=== PATIENT | male | born 1960 | race Caucasian/White ===

== ENCOUNTER → 2017-10-07 | Outpatient (CLI) | payer MEDICARE ==
[2017-10-07 09:39] LABS: HEMATOCRIT 47.2 % (42.0-52.0); HEMOGLOBIN 16.4 g/dl (14.0-18.0); MEAN CELL VOLUME 90.4 fl (80.0-94.0); MEAN CORPUSCULAR HGB 31.4 pg (27.0-31.0); MEAN CORPUSCULAR HGB CONC 34.7 g/dl (33.0-37.0); MEAN PLATELET VOLUME 11.8 fl (9.6-12.3); RED BLOOD COUNT 5.22 10*6/uL (4.50-5.90); RED CELL DISTRI WIDTH 12.8 % (0-14.5); WHITE BLOOD COUNT 7.6 10*3/uL (4.8-10.8)
[2017-10-07 09:49] LABS: ALKALINE PHOSPHATASE 112 U/L (45-117); BUN 11 mg/dl (7-24); CHLORIDE 105 mmol/L (98-107); CHOLESTEROL 106 mg/dL (<200); CREATININE 0.86 mg/dL (0.70-1.30); HDL CHOLESTEROL 48 mg/dl (40-60); LDL CHOLESTEROL 44 mg/dL (9-159); POTASSIUM 4.1 mmol/L (3.5-5.1); SGOT/AST 27 IU/L (3-35); SGPT/ALT 46 U/L (12-78); SODIUM 141 mmol/L (136-145); TOTAL PROTEIN 7.3 gm/dL (6.4-8.2); TRIGLYCERIDES 71 mg/dl (<150); VLDL CHOLESTEROL 14 mg/dL (6-40)
== END | disposition home or self-care (01) ==
LOC: LAB 08:37
PROVIDERS: Family Medicine
DX: Z12.5 Encounter for screening for malignant neoplasm of prostate (principal); I10 Essential (primary) hypertension; E11.9 Type 2 diabetes mellitus without complications; E78.00 Pure hypercholesterolemia, unspecified

== ENCOUNTER 2020-04-28 16:06 | Inpatient (IN) | payer MEDICARE ==
[~2020-04-28] VITALS: Ht 177.8 cm; Wt 98.0 kg
[2020-04-28 16:08] VITALS: BP 135/70
[2020-04-28 16:35] LABS: BASO # 0.1 10*3/uL (0.0-0.1); BASO % 0.8 % (0.0-1.0); EOS # 0.1 10*3/uL (0.0-0.4); EOS % 1.3 % (1.0-4.0); HEMATOCRIT 46.8 % (42.0-52.0); LYMPH # 1.7 10*3/uL (1.3-4.4); LYMPH % 21.5 % (27.0-41.0); MEAN CELL VOLUME 91.2 fl (80.0-94.0); MEAN CORPUSCULAR HGB 31.2 pg (27.0-31.0); MEAN CORPUSCULAR HGB CONC 34.2 g/dl (33.0-37.0); MEAN PLATELET VOLUME 11.9 fl (9.6-12.3); MONO # 0.5 10*3/uL (0.1-1.0); MONO % 6.4 % (3.0-9.0); NEUT # 5.3 10*3/uL (2.3-7.9); NEUT % 69.2 % (47.0-73.0); PLATELET COUNT AUTOMATED 146 10*3/uL (130-400); RED BLOOD COUNT 5.13 10*6/uL (4.50-5.90); RED CELL DISTRI WIDTH 12.6 % (0-14.5); WHITE BLOOD COUNT 7.7 10*3/uL (4.8-10.8)
[2020-04-28 16:44] LABS: ACT PARTIAL THROMBO TIME 25.7 SECONDS (20.0-32.1)
[2020-04-28 16:51] LABS: ALBUMIN 3.9 gm/dl (3.1-4.5); ALKALINE PHOSPHATASE 136 U/L (45-117); BUN 22 mg/dl (7-24); CHLORIDE 103 mmol/L (98-107); CREATININE 1.09 mg/dL (0.70-1.30); POTASSIUM 4.1 mmol/L (3.5-5.1); SGOT/AST 10 IU/L (3-35); SGPT/ALT 32 U/L (12-78); SODIUM 134 mmol/L (136-145); TOTAL PROTEIN 7.4 gm/dL (6.4-8.2)
[2020-04-28 16:54] LABS: TROPONIN I < 0.015 ng/ml (<0.045)
[2020-04-28 17:38] VITALS: BP 139/75
[2020-04-28 18:29] VITALS: BP 119/62
--- NOTE | 2020-04-28 18:31 | NUR ---
CALLED TO [facility] EAST TO FIND OUT WHAT NURSE IS TAKING PATIENT AND WAS TOLD ALL NURSES ARE DOING ADMISSIONS AT THIS TIME. WARDCLERK STATES UNSURE OF WHAT NURSE IS TAKING PT AT THIS TIME. PT. QUIETLY RESTING IN BED WITH EYES CLOSED.
--- NOTE | 2020-04-28 18:50 | NUR ---
A 59, admitted to 5E, under the services of LOUIS Mayer MD with a diagnosis of CHEST PAIN . Chief complaint is CHEST PAIN . Patient arrived via stretcher from ER. Monitor applied. Initial assessment completed. Vital signs taken and recorded. LOUIS MAYER MD notified of admission to the unit. Orders received. See assessment for past medical history, medications and allergies. Patient and/or family oriented to unit. [facility] visitation policy reviewed. Clothing/patient valuable form completed. FRANNIE SANTIAGO
--- NOTE | 2020-04-28 19:16 | NUR ---
PT DENIES ANY WOUNDS
--- NOTE | 2020-04-28 19:56 | NUR ---
dr reza called for admission orders
--- NOTE | 2020-04-28 20:11 | NUR ---
DR HERRERA NOTIFIED OF CONSULT, PATIENT WILL HAVE CARDIOLITE LEXISCAN STRESS AT 7 AM
[2020-04-28 22:11] VITALS: BP 138/70
--- NOTE | 2020-04-29 02:00 | NUR ---
blood glucose check 195
[2020-04-29 06:58] LABS: CHOLESTEROL 141 mg/dL (<200); HDL CHOLESTEROL 44 mg/dl (40-60); LDL CHOLESTEROL 67 mg/dL (9-159); TRIGLYCERIDES 152 mg/dl (<150); VLDL CHOLESTEROL 30 mg/dL (6-40)
--- NOTE | 2020-04-29 07:25 | NUR ---
OFF FLOOR FOR STRESS TEST.
--- NOTE | 2020-04-29 07:45 | NUR ---
INFORMED CONSENT OBTAINED FOR LEXISCAN NUCLEAR STRESS TEST WITH DR. HERRERA. RESTING EKG RBBB WITH A RESTING HR OF 64 WITH BP 112/60. LUNGS CLEAR WITH SPO2 OF 97% ON ROOM AIR. PT COMPLETED A 1:00 LEXISCAN PROTOCOL RECEIVING LEXISCAN 0.4 MG IV OVER 10 SECONDS. HAD NO CHEST PAIN OR ANY EKG CHANGES. DID C/O "HEADACHE AND ODD FEELING" THAT SUBSIDED IN RECOVERY. HAD A PEAK HR OF 83 WITH BP OF 94/50. LAST RECOVERY HR OF 76 WITH BP OF 90/52. AWAITING SCANNING IN STABLE CONDITION.
[2020-04-29] MEDS ORDERED: GLIMEPIRIDE2 MG PO (08:55)
[2020-04-29] MEDS ORDERED: GLUCOPHAGE500 MG PO (08:55)
--- NOTE | 2020-04-29 11:52 | NUR ---
[employer] Teacher in to talk to patient. Patient states lives at HOME with 2 GRAND CHILDREN. There are 13 steps in the home. Physician: [facility] [place] [facility] NONE Patient's level of ADLs: INDEPENDENT Patient has working utilities: YES DME: NONE Follow-up physician's appointment after d/c: PREFERS TO MAKE OWN AFTER DISCHARGE Does patient want to access PORTAL?: NO Discharge plan PT LIVES AT HOME WITH 2 GRAND CHILDREN HE HAS CUSTODY OF. DENIES HE WILL HAVE ANY NEEDS ON DISCHARGE. PLAN IS TO RETURN HOME WHEN MEDICALLY STABLE. WILL CONTINUE TO FOLLOW. STATES HE WILL HAVE A RIDE HOME. MIKE MARCOS
--- NOTE | 2020-04-29 13:32 | NUR ---
[facility] Discharge instructions reviewed with patient/family. Patient receptive and verbalizes understanding. Follow-up care arranged. Written instructions given to patient/family. ADELAIDA FINNEY
== END 2020-04-29 13:44 | disposition home or self-care (01) | DRG 639 ==
LOC: ED 16:06 → EDHOLD 17:57 → 5E 17:57
PROVIDERS: Emergency Medicine; ADMIT Internal Medicine
PROC: 3E073KZ Introduction of Other Diagnostic Substance into Coronary Artery, Percutaneous Approach (ICD-10-PCS; principal; 2020-04-29)
PROC: 4A02XM4 Measurement of Cardiac Total Activity, External Approach (ICD-10-PCS; principal; 2020-04-29)
DX: E11.65 Type 2 diabetes mellitus with hyperglycemia (principal); I45.10 Unspecified right bundle-branch block; Z82.49 Family history of ischemic heart disease and other diseases of the circulatory system

== ENCOUNTER 2021-07-10 11:41 | Inpatient (IN) | payer MEDICARE ==
[~2021-07-10] VITALS: Ht 178 cm; Wt 88.0 kg
[~2021-07-10 11:41] MED LIST: CEPHALEXIN500 M1 PO; GLIMEPIRIDE2 MG PO; GLUCOPHAGE500 MG PO; SEPTDS PO
[2021-07-10 12:21] VITALS: BP 125/60
[2021-07-10 13:43] LABS: BASO # 0.1 10*3/uL (0.0-0.1); BASO % 0.5 % (0.0-1.0); EOS # 0.1 10*3/uL (0.0-0.4); EOS % 1.2 % (1.0-4.0); HEMATOCRIT 42.4 % (42.0-52.0); LYMPH # 1.3 10*3/uL (1.3-4.4); LYMPH % 13.6 % (27.0-41.0); MEAN CELL VOLUME 88.9 fl (80.0-94.0); MEAN CORPUSCULAR HGB 30.8 pg (27.0-31.0); MEAN CORPUSCULAR HGB CONC 34.7 g/dl (33.0-37.0); MEAN PLATELET VOLUME 11.4 fl (9.6-12.3); MONO # 0.6 10*3/uL (0.1-1.0); MONO % 6.2 % (3.0-9.0); NEUT # 7.1 10*3/uL (2.3-7.9); NEUT % 77.7 % (47.0-73.0); PLATELET COUNT AUTOMATED 148 10*3/uL (130-400); RED BLOOD COUNT 4.77 10*6/uL (4.50-5.90); RED CELL DISTRI WIDTH 12.5 % (0-14.5); WHITE BLOOD COUNT 9.2 10*3/uL (4.8-10.8)
[2021-07-10 14:04] LABS: ALBUMIN 3.4 gm/dl (3.1-4.5); ALKALINE PHOSPHATASE 110 U/L (45-117); BUN 18 mg/dl (7-24); CHLORIDE 105 mmol/L (98-107); CREATININE 0.96 mg/dL (0.70-1.30); POTASSIUM 4.2 mmol/L (3.5-5.1); SGOT/AST 10 IU/L (3-35); SGPT/ALT 25 U/L (12-78); SODIUM 136 mmol/L (136-145); TOTAL PROTEIN 7.3 gm/dL (6.4-8.2)
[2021-07-10 22:08] VITALS: BP 141/68
[2021-07-11 03:27] VITALS: BP 98/46
[2021-07-11 07:24] LABS: BASO # 0.1 10*3/uL (0.0-0.1); BASO % 0.7 % (0.0-1.0); EOS # 0.1 10*3/uL (0.0-0.4); EOS % 1.8 % (1.0-4.0); HEMATOCRIT 40.7 % (42.0-52.0); LYMPH # 1.3 10*3/uL (1.3-4.4); LYMPH % 17.1 % (27.0-41.0); MEAN CORPUSCULAR HGB 31.1 pg (27.0-31.0); MEAN CORPUSCULAR HGB CONC 33.7 g/dl (33.0-37.0); MEAN PLATELET VOLUME 11.9 fl (9.6-12.3); MONO # 0.5 10*3/uL (0.1-1.0); MONO % 6.4 % (3.0-9.0); NEUT # 5.6 10*3/uL (2.3-7.9); NEUT % 73.3 % (47.0-73.0); PLATELET COUNT AUTOMATED 150 10*3/uL (130-400); RED BLOOD COUNT 4.41 10*6/uL (4.50-5.90); RED CELL DISTRI WIDTH 12.6 % (0-14.5); WHITE BLOOD COUNT 7.7 10*3/uL (4.8-10.8)
[2021-07-11 07:25] LABS: MEAN CELL VOLUME 92.3 fl (80.0-94.0)
[2021-07-11 08:39] VITALS: BP 132/86
[2021-07-11 18:58] VITALS: BP 131/79
[2021-07-12] MEDS ORDERED: AUGMENTIN 875-875 MG PO ×2 (16:31)
[2021-07-12] MEDS ORDERED: GLUCOPHAGE500 MG PO (16:32)
[2021-07-12 20:31] VITALS: BP 110/72
== END 2021-07-13 09:40 | disposition left against medical advice (07) | DRG 603 ==
LOC: ED 11:41 → EDHOLD 17:04
PROVIDERS: Physician Assistant; ADMIT Internal Medicine; ATTEND Internal Medicine
DX: L03.011 Cellulitis of right finger (principal); L02.511 Cutaneous abscess of right hand; Z53.29 Procedure and treatment not carried out because of patient's decision for other reasons; Z79.899 Other long term (current) drug therapy; E11.9 Type 2 diabetes mellitus without complications; A49.01 Methicillin susceptible Staphylococcus aureus infection, unspecified site

== ENCOUNTER → 2021-07-14 | Outpatient (CLI) | payer MEDICARE ==
[~2021-07-14] MED LIST changes: +AUGMENTIN 875-875 MG PO
== END ==
LOC: WOUNDCARE 13:48
PROVIDERS: ATTEND Surgery
DX: L02.511 Cutaneous abscess of right hand (principal); L03.011 Cellulitis of right finger; I25.2 Old myocardial infarction; Z98.890 Other specified postprocedural states; Z79.899 Other long term (current) drug therapy

== ENCOUNTER → 2021-07-16 | Outpatient (CLI) | payer MEDICARE | LOC: WOUNDCARE 00:17 | PROVIDERS: ATTEND Nurse Practitioner | DX: L02.511 Cutaneous abscess of right hand (principal); L03.011 Cellulitis of right finger; I25.2 Old myocardial infarction; Z98.890 Other specified postprocedural states; Z79.899 Other long term (current) drug therapy ==

== ENCOUNTER → 2021-07-21 | Outpatient (CLI) | payer MEDICARE | LOC: WOUNDCARE 01:26 | PROVIDERS: ATTEND Surgery | DX: L02.511 Cutaneous abscess of right hand (principal); L03.011 Cellulitis of right finger; I25.2 Old myocardial infarction; Z79.899 Other long term (current) drug therapy ==

== ENCOUNTER → 2021-08-17 | Outpatient (CLI) | payer MEDICARE ==
[~2021-08-17] MED LIST changes: +CUBICIN RF500 MG IV; +TRAD5TAB1 PO; +VANCO 1.51.5 GM/250 IV
[2021-08-17 13:42] LABS: HEMATOCRIT 44.5 % (42.0-52.0); MEAN CORPUSCULAR HGB 31.1 pg (27.0-31.0); MEAN CORPUSCULAR HGB CONC 34.2 g/dl (33.0-37.0); MEAN PLATELET VOLUME 11.3 fl (9.6-12.3); RED BLOOD COUNT 4.89 10*6/uL (4.50-5.90); RED CELL DISTRI WIDTH 13.8 % (0-14.5); WHITE BLOOD COUNT 5.1 10*3/uL (4.8-10.8)
[2021-08-17 14:09] LABS: ALBUMIN 3.7 gm/dl (3.1-4.5); ALKALINE PHOSPHATASE 98 U/L (45-117); BUN 18 mg/dl (7-24); CHLORIDE 101 mmol/L (98-107); CHOLESTEROL 105 mg/dL (<200); CREATININE 0.97 mg/dL (0.70-1.30); LDL CHOLESTEROL 34 mg/dL (9-159); POTASSIUM 3.9 mmol/L (3.5-5.1); SGOT/AST 39 IU/L (3-35); SGPT/ALT 55 U/L (12-78); SODIUM 134 mmol/L (136-145); TOTAL PROTEIN 7.7 gm/dL (6.4-8.2); TRIGLYCERIDES 97 mg/dl (<150)
== END | disposition home or self-care (01) ==
LOC: LAB 13:22
PROVIDERS: ATTEND Family Medicine
DX: E11.9 Type 2 diabetes mellitus without complications (principal); E78.00 Pure hypercholesterolemia, unspecified; D72.829 Elevated white blood cell count, unspecified; M86.9 Osteomyelitis, unspecified; R53.83 Other fatigue

== ENCOUNTER → 2021-08-31 | Outpatient (CLI) | payer MEDICARE | END | disposition home or self-care (01) | LOC: ORTHO 01:24 | PROVIDERS: ATTEND Orthopaedic Surgery | DX: M86.141 Other acute osteomyelitis, right hand (principal); M79.89 Other specified soft tissue disorders; M25.841 Other specified joint disorders, right hand ==

== ENCOUNTER 2021-09-03 13:23 | Inpatient (IN) | payer MEDICARE ==
[~2021-09-03] VITALS: Ht 177.8 cm; Wt 88.5 kg
[2021-09-03 13:29] VITALS: BP 134/66
[2021-09-03 18:58] LABS: BILIRUBIN Negative (Negative); BLOOD Negative (Negative); CLARITY Clear (Clear); COLOR Yellow (Yellow); GLUCOSE Negative (Negative); KETONE Negative (Negative); LEUKO ESTERASE Negative (Negative); NITRITE Negative (Negative); PH 7.5 (4.5-8.0); SPECIFIC GRAVITY <= 1.005 (1.001-1.030); UROBILINOGEN 0.2 E.U./dl (0.0-1.0)
[2021-09-03 19:22] LABS: BASO % 0.4 % (0.0-1.0); EOS # 0.1 10*3/uL (0.0-0.4); EOS % 0.8 % (1.0-4.0); HEMATOCRIT 40.3 % (42.0-52.0); LYMPH # 1.1 10*3/uL (1.3-4.4); LYMPH % 12.2 % (27.0-41.0); MEAN CELL VOLUME 90.2 fl (80.0-94.0); MEAN CORPUSCULAR HGB 30.4 pg (27.0-31.0); MEAN CORPUSCULAR HGB CONC 33.7 g/dl (33.0-37.0); MEAN PLATELET VOLUME 10.1 fl (9.6-12.3); MONO # 0.6 10*3/uL (0.1-1.0); MONO % 6.3 % (3.0-9.0); NEUT # 7.3 10*3/uL (2.3-7.9); NEUT % 79.8 % (47.0-73.0); PLATELET COUNT AUTOMATED 177 10*3/uL (130-400); RED BLOOD COUNT 4.47 10*6/uL (4.50-5.90); RED CELL DISTRI WIDTH 13.2 % (0-14.5); WHITE BLOOD COUNT 9.2 10*3/uL (4.8-10.8)
[2021-09-03 19:23] LABS: BACTERIA TRACE; RBC 0-2 rbc/hpf (0-2); WBC 0-2 wbc/hpf (0-5)
[2021-09-03 19:47] LABS: ALBUMIN 3.4 gm/dl (3.1-4.5); ALKALINE PHOSPHATASE 71 U/L (45-117); BUN 11 mg/dl (7-24); CHLORIDE 106 mmol/L (98-107); CREATININE 0.79 mg/dL (0.70-1.30); POTASSIUM 3.9 mmol/L (3.5-5.1); SGOT/AST 23 IU/L (3-35); SGPT/ALT 39 U/L (12-78); SODIUM 136 mmol/L (136-145); TOTAL PROTEIN 7.7 gm/dL (6.4-8.2)
[2021-09-03 19:54] LABS: TROPONIN I < 0.015 ng/ml (<0.045)
[2021-09-03 22:58] VITALS: BP 126/58
[2021-09-04 04:28] LABS: BASO # 0.1 10*3/uL (0.0-0.1); BASO % 0.7 % (0.0-1.0); EOS # 0.1 10*3/uL (0.0-0.4); EOS % 0.7 % (1.0-4.0); HEMATOCRIT 35.9 % (42.0-52.0); LYMPH # 1.1 10*3/uL (1.3-4.4); LYMPH % 14.9 % (27.0-41.0); MEAN CELL VOLUME 92.3 fl (80.0-94.0); MEAN CORPUSCULAR HGB 31.1 pg (27.0-31.0); MEAN CORPUSCULAR HGB CONC 33.7 g/dl (33.0-37.0); MEAN PLATELET VOLUME 10.4 fl (9.6-12.3); MONO # 0.6 10*3/uL (0.1-1.0); MONO % 7.8 % (3.0-9.0); NEUT # 5.7 10*3/uL (2.3-7.9); NEUT % 75.4 % (47.0-73.0); PLATELET COUNT AUTOMATED 143 10*3/uL (130-400); RED BLOOD COUNT 3.89 10*6/uL (4.50-5.90); RED CELL DISTRI WIDTH 13.5 % (0-14.5); WHITE BLOOD COUNT 7.5 10*3/uL (4.8-10.8)
[2021-09-04 04:49] LABS: BUN 13 mg/dl (7-24); CHLORIDE 103 mmol/L (98-107); CREATININE 0.82 mg/dL (0.70-1.30); POTASSIUM 3.7 mmol/L (3.5-5.1); SGOT/AST 19 IU/L (3-35); SGPT/ALT 32 U/L (12-78); SODIUM 136 mmol/L (136-145)
[2021-09-04 04:50] LABS: ALKALINE PHOSPHATASE 62 U/L (45-117); TOTAL PROTEIN 6.9 gm/dL (6.4-8.2)
[2021-09-04 04:55] VITALS: BP 108/46
[2021-09-04 07:39] VITALS: BP 102/52
[2021-09-04 13:00] VITALS: BP 119/57
[2021-09-04 13:58] VITALS: BP 108/46
[2021-09-04 16:44] VITALS: BP 83/58
[2021-09-04 16:57] VITALS: BP 84/44
== END 2021-09-04 16:12 | disposition home or self-care (01) | DRG 513 ==
LOC: ED 13:23 → EDHOLD 20:05 → 4E 09-04 15:06
PROVIDERS: Physician Assistant; ADMIT Internal Medicine; ATTEND Internal Medicine
PROC: 0X6Q0Z1 Detachment at Right Middle Finger, High, Open Approach (ICD-10-PCS; principal; 2021-09-04)
DX: M86.141 Other acute osteomyelitis, right hand (principal); R78.81 Bacteremia; X58.XXXA Exposure to other specified factors, initial encounter; S66.392A Other injury of extensor muscle, fascia and tendon of right middle finger at wrist and hand level, initial encounter; Z79.899 Other long term (current) drug therapy; Y93.89 Activity, other specified; Y92.89 Other specified places as the place of occurrence of the external cause; Y99.8 Other external cause status

== ENCOUNTER → 2021-09-15 | Outpatient (CLI) | payer MEDICARE ==
[2021-09-15 09:43] LABS: HEMATOCRIT 41.6 % (42.0-52.0); MEAN CELL VOLUME 91.2 fl (80.0-94.0); MEAN CORPUSCULAR HGB 30.5 pg (27.0-31.0); MEAN CORPUSCULAR HGB CONC 33.4 g/dl (33.0-37.0); MEAN PLATELET VOLUME 9.8 fl (9.6-12.3); RED BLOOD COUNT 4.56 10*6/uL (4.50-5.90); RED CELL DISTRI WIDTH 13.9 % (0-14.5); WHITE BLOOD COUNT 6.7 10*3/uL (4.8-10.8)
[2021-09-15 10:13] LABS: ALBUMIN 3.5 gm/dl (3.1-4.5); ALKALINE PHOSPHATASE 80 U/L (45-117); BUN 16 mg/dl (7-24); CHLORIDE 107 mmol/L (98-107); CREATININE 1.09 mg/dL (0.70-1.30); POTASSIUM 3.9 mmol/L (3.5-5.1); SGOT/AST 11 IU/L (3-35); SGPT/ALT 26 U/L (12-78); SODIUM 137 mmol/L (136-145); TOTAL PROTEIN 7.6 gm/dL (6.4-8.2)
== END | disposition home or self-care (01) ==
LOC: LAB 09:15
PROVIDERS: ATTEND Family Medicine
DX: I10 Essential (primary) hypertension (principal); M86.9 Osteomyelitis, unspecified; L03.90 Cellulitis, unspecified

== ENCOUNTER → 2021-09-28 | Outpatient (CLI) | payer MEDICARE | END | disposition home or self-care (01) | LOC: ORTHO 00:18 | PROVIDERS: ATTEND Orthopaedic Surgery | DX: M19.011 Primary osteoarthritis, right shoulder (principal) ==

== ENCOUNTER 2022-05-02 16:42 | Inpatient (IN) | payer MEDICARE ==
[~2022-05-02] VITALS: Ht 177.8 cm; Wt 94.1 kg
[2022-05-02 16:57] VITALS: BP 155/60
[2022-05-02 17:56] LABS: BASO # 0.1 10*3/uL (0.0-0.1); BASO % 0.6 % (0.0-1.0); EOS # 0.2 10*3/uL (0.0-0.4); EOS % 1.4 % (1.0-4.0); HEMATOCRIT 43.8 % (42.0-52.0); LYMPH % 8.3 % (27.0-41.0); MEAN CELL VOLUME 91.3 fl (80.0-94.0); MEAN PLATELET VOLUME 11.5 fl (9.6-12.3); MONO # 0.8 10*3/uL (0.1-1.0); MONO % 6.6 % (3.0-9.0); NEUT # 9.9 10*3/uL (2.3-7.9); NEUT % 82.5 % (47.0-73.0); PLATELET COUNT AUTOMATED 156 10*3/uL (130-400); RED CELL DISTRI WIDTH 12.3 % (0-14.5)
[2022-05-02 18:10] LABS: ALKALINE PHOSPHATASE 104 U/L (45-117); BUN 15 mg/dl (7-24); CHLORIDE 103 mmol/L (98-107); CREATININE 0.93 mg/dL (0.70-1.30); POTASSIUM 3.8 mmol/L (3.5-5.1); SGOT/AST 9 IU/L (3-35); SGPT/ALT 19 U/L (12-78); SODIUM 133 mmol/L (136-145); TOTAL PROTEIN 7.3 gm/dL (6.4-8.2)
[2022-05-02 19:53] VITALS: BP 146/65
[2022-05-02 20:10] VITALS: BP 144/75
[2022-05-02 20:20] VITALS: BP 144/75
[2022-05-03] VITALS (8 sets, daily range): BP systolic 109–153; BP diastolic 53–76
[2022-05-03 10:31] LABS: ACT PARTIAL THROMBO TIME 25.6 SECONDS (20.0-32.1); INTERNATIONAL NORM RATIO 1.1 (2.0-3.5)
[2022-05-04] VITALS: BP 128/59
[2022-05-04 06:15] LABS: BUN 15 mg/dl (7-24); CHLORIDE 107 mmol/L (98-107); CREATININE 0.75 mg/dL (0.70-1.30); POTASSIUM 3.6 mmol/L (3.5-5.1); SODIUM 139 mmol/L (136-145)
[2022-05-04 06:41] LABS: BASO # 0.1 10*3/uL (0.0-0.1); BASO % 0.8 % (0.0-1.0); EOS # 0.2 10*3/uL (0.0-0.4); EOS % 2.2 % (1.0-4.0); HEMATOCRIT 40.6 % (42.0-52.0); LYMPH # 1.1 10*3/uL (1.3-4.4); LYMPH % 12.5 % (27.0-41.0); MEAN CELL VOLUME 89.8 fl (80.0-94.0); MEAN CORPUSCULAR HGB 31.4 pg (27.0-31.0); MEAN PLATELET VOLUME 11.5 fl (9.6-12.3); MONO # 0.7 10*3/uL (0.1-1.0); MONO % 7.2 % (3.0-9.0); NEUT % 76.4 % (47.0-73.0); PLATELET COUNT AUTOMATED 148 10*3/uL (130-400); RED BLOOD COUNT 4.52 10*6/uL (4.50-5.90); RED CELL DISTRI WIDTH 12.2 % (0-14.5); WHITE BLOOD COUNT 9.1 10*3/uL (4.8-10.8)
[2022-05-04 08:00] VITALS: BP 103/91
[2022-05-04 16:00] VITALS: BP 120/54
[2022-05-04 20:00] VITALS: BP 120/55
[2022-05-05] VITALS: BP 138/51
[2022-05-05 08:00] VITALS: BP 138/57
[2022-05-05 16:00] VITALS: BP 116/53
[2022-05-05 20:00] VITALS: BP 130/64
[2022-05-06] VITALS: BP 119/57
[2022-05-06 08:00] VITALS: BP 111/64
[2022-05-06 12:00] VITALS: BP 128/70
== END 2022-05-06 17:24 | disposition short-term general hospital (02) | DRG 603 ==
LOC: ED 16:42 → 4E 18:28 → EDHOLD 18:28 → 4E 19:45
PROVIDERS: Emergency Medicine; ADMIT Internal Medicine; ATTEND Internal Medicine
PROC: 0X940ZZ Drainage of Right Axilla, Open Approach (ICD-10-PCS; principal; 2022-05-03)
DX: L02.411 Cutaneous abscess of right axilla (principal); R78.81 Bacteremia; E87.1 Hypo-osmolality and hyponatremia; B95.8 Unspecified staphylococcus as the cause of diseases classified elsewhere; D72.829 Elevated white blood cell count, unspecified; I25.10 Atherosclerotic heart disease of native coronary artery without angina pectoris; L03.112 Cellulitis of left axilla; E11.9 Type 2 diabetes mellitus without complications; Z91.041 Radiographic dye allergy status

== ENCOUNTER → 2022-05-18 | Outpatient (CLI) | payer MEDICARE | END | disposition home or self-care (01) | LOC: WOUNDCARE 02:13 | PROVIDERS: ATTEND Surgery | DX: L02.411 Cutaneous abscess of right axilla (principal); E11.9 Type 2 diabetes mellitus without complications; I25.10 Atherosclerotic heart disease of native coronary artery without angina pectoris ==

== ENCOUNTER → 2022-05-26 | Outpatient (CLI) | payer MEDICARE | LOC: WOUNDCARE 01:15 | PROVIDERS: ATTEND Nurse Practitioner Family | DX: Z53.21 Procedure and treatment not carried out due to patient leaving prior to being seen by health care provider (principal) ==

== ENCOUNTER → 2022-06-11 | Outpatient (CLI) | payer MEDICARE ==
[2022-06-11 12:53] LABS: BASO # 0.1 10*3/uL (0.0-0.1); EOS # 0.2 10*3/uL (0.0-0.4); EOS % 2.9 % (1.0-4.0); HEMATOCRIT 42.7 % (42.0-52.0); LYMPH # 1.2 10*3/uL (1.3-4.4); LYMPH % 20.7 % (27.0-41.0); MEAN CELL VOLUME 92.4 fl (80.0-94.0); MEAN CORPUSCULAR HGB 31.4 pg (27.0-31.0); MEAN PLATELET VOLUME 11.6 fl (9.6-12.3); MONO # 0.4 10*3/uL (0.1-1.0); MONO % 6.4 % (3.0-9.0); NEUT # 4.1 10*3/uL (2.3-7.9); NEUT % 68.5 % (47.0-73.0); PLATELET COUNT AUTOMATED 173 10*3/uL (130-400); RED BLOOD COUNT 4.62 10*6/uL (4.50-5.90); WHITE BLOOD COUNT 5.9 10*3/uL (4.8-10.8)
[2022-06-11 13:15] LABS: ALKALINE PHOSPHATASE 102 U/L (45-117); BUN 16 mg/dl (7-24); CHLORIDE 109 mmol/L (98-107); CREATININE 0.95 mg/dL (0.70-1.30); POTASSIUM 3.9 mmol/L (3.5-5.1); SGOT/AST 12 IU/L (3-35); SGPT/ALT 23 U/L (12-78); SODIUM 137 mmol/L (136-145); TOTAL PROTEIN 7.2 gm/dL (6.4-8.2)
== END | disposition home or self-care (01) ==
LOC: LAB 11:47
PROVIDERS: ATTEND Specialist
DX: R78.81 Bacteremia (principal); B95.62 Methicillin resistant Staphylococcus aureus infection as the cause of diseases classified elsewhere

== ENCOUNTER → 2023-03-15 | Outpatient (CLI) | payer MEDICARE ==
[2023-03-15 09:19] LABS: HEMATOCRIT 47.5 % (42.0-52.0); MEAN CELL VOLUME 93.7 fl (80.0-94.0); MEAN CORPUSCULAR HGB CONC 33.1 g/dl (33.0-37.0); MEAN PLATELET VOLUME 10.9 fl (9.6-12.3); RED BLOOD COUNT 5.07 10*6/uL (4.50-5.90); RED CELL DISTRI WIDTH 12.9 % (0-14.5); WHITE BLOOD COUNT 8.2 10*3/uL (4.8-10.8)
[2023-03-15 09:59] LABS: VITAMIN D, 25-HYDROXY 37.3 ng/mL (30-100)
[2023-03-15 10:00] LABS: ALKALINE PHOSPHATASE 88 U/L (46-116); BUN 10 mg/dl (9-23); CHLORIDE 104 mmol/L (98-107); CHOLESTEROL 110 mg/dL (<200); LDL CHOLESTEROL 41 mg/dL (9-159); POTASSIUM 4.5 mmol/L (3.4-5.1); SGPT/ALT 16 U/L (10-49); TOTAL PROTEIN 7.1 gm/dL (6.0-8.0); TRIGLYCERIDES 96 mg/dl (<150)
== END | disposition home or self-care (01) ==
LOC: LAB 09:02
PROVIDERS: ATTEND Family Medicine
DX: Z12.5 Encounter for screening for malignant neoplasm of prostate (principal); R53.83 Other fatigue; E78.00 Pure hypercholesterolemia, unspecified; R19.09 Other intra-abdominal and pelvic swelling, mass and lump; E55.9 Vitamin D deficiency, unspecified; E11.9 Type 2 diabetes mellitus without complications

== ENCOUNTER → 2023-03-24 | Day surgery (SDC) | payer MEDICARE ==
[~2023-03-24] VITALS: Ht 177.8 cm; Wt 90.7 kg
[2023-03-24 07:37] VITALS: BP 142/64
[2023-03-24 08:50] VITALS: BP 102/50
[2023-03-24 09:05] VITALS: BP 106/57
[2023-03-24 09:20] VITALS: BP 117/65
== END | disposition home or self-care (01) ==
LOC: SDC 03-22 11:00
PROVIDERS: ATTEND Surgery
DX: L72.0 Epidermal cyst (principal); J44.9 Chronic obstructive pulmonary disease, unspecified; E11.9 Type 2 diabetes mellitus without complications; I25.2 Old myocardial infarction; Z98.890 Other specified postprocedural states

== ENCOUNTER 2023-04-11 11:02 | Emergency (ER) | payer MEDICARE ==
[~2023-04-11] VITALS: Ht 177.8 cm; Wt 90.7 kg
[2023-04-11 11:48] LABS: BASO # 0.1 10*3/uL (0.0-0.1); EOS # 0.5 10*3/uL (0.0-0.4); EOS % 4.9 % (1.0-4.0); HEMATOCRIT 46.4 % (42.0-52.0); LYMPH # 1.6 10*3/uL (1.3-4.4); LYMPH % 14.8 % (27.0-41.0); MEAN CELL VOLUME 92.2 fl (80.0-94.0); MEAN CORPUSCULAR HGB CONC 33.6 g/dl (33.0-37.0); MEAN PLATELET VOLUME 11.5 fl (9.6-12.3); MONO # 0.6 10*3/uL (0.1-1.0); MONO % 5.6 % (3.0-9.0); NEUT # 7.7 10*3/uL (2.3-7.9); NEUT % 72.9 % (47.0-73.0); PLATELET COUNT AUTOMATED 145 10*3/uL (130-400); RED BLOOD COUNT 5.03 10*6/uL (4.50-5.90); RED CELL DISTRI WIDTH 13.1 % (0-14.5); WHITE BLOOD COUNT 10.5 10*3/uL (4.8-10.8)
[2023-04-11 11:59] LABS: ACT PARTIAL THROMBO TIME 24.5 SECONDS (20.0-32.1)
[2023-04-11 12:15] LABS: ALKALINE PHOSPHATASE 89 U/L (46-116); BUN 13 mg/dl (9-23); CHLORIDE 105 mmol/L (98-107); SGPT/ALT 15 U/L (10-49); TOTAL PROTEIN 7.1 gm/dL (6.0-8.0)
== END 2023-04-11 12:41 | disposition home or self-care (01) ==
LOC: ED 11:02
PROVIDERS: Emergency Medicine
DX: R07.89 Other chest pain (principal); J44.9 Chronic obstructive pulmonary disease, unspecified; I25.2 Old myocardial infarction; E11.9 Type 2 diabetes mellitus without complications; Z98.890 Other specified postprocedural states

== ENCOUNTER → 2023-06-14 | Outpatient (CLI) | payer MEDICARE ==
[2023-06-14 09:51] LABS: HEMATOCRIT 38.3 % (42.0-52.0); MEAN CELL VOLUME 89.9 fl (80.0-94.0); MEAN CORPUSCULAR HGB 31.5 pg (27.0-31.0); MEAN PLATELET VOLUME 11.5 fl (9.6-12.3); RED BLOOD COUNT 4.26 10*6/uL (4.50-5.90); RED CELL DISTRI WIDTH 12.8 % (0-14.5); WHITE BLOOD COUNT 15.6 10*3/uL (4.8-10.8)
[2023-06-14 10:13] LABS: ALKALINE PHOSPHATASE 119 U/L (46-116); BUN 17 mg/dl (9-23); CHLORIDE 101 mmol/L (98-107); CHOLESTEROL 93 mg/dL (<200); CPK 34 U/L (34-171); LDL CHOLESTEROL 47 mg/dL (9-159); POTASSIUM 3.7 mmol/L (3.4-5.1); SGPT/ALT 28 U/L (10-49); TOTAL PROTEIN 6.7 gm/dL (6.0-8.0); TRIGLYCERIDES 82 mg/dl (<150)
[2023-06-14 11:11] LABS: VITAMIN D, 25-HYDROXY 27.5 ng/mL (30-100)
== END | disposition home or self-care (01) ==
LOC: LAB 09:00
PROVIDERS: ATTEND Family Medicine
DX: E55.9 Vitamin D deficiency, unspecified (principal); E78.00 Pure hypercholesterolemia, unspecified; R53.83 Other fatigue; D51.9 Vitamin B12 deficiency anemia, unspecified; G47.00 Insomnia, unspecified; N40.1 Benign prostatic hyperplasia with lower urinary tract symptoms; E11.9 Type 2 diabetes mellitus without complications

== ENCOUNTER → 2024-04-05 | Outpatient (CLI) | payer MEDICARE ==
[2024-04-05 09:46] LABS: HEMATOCRIT 43.8 % (42.0-52.0); MEAN CELL VOLUME 93.4 fl (80.0-94.0); MEAN CORPUSCULAR HGB 31.6 pg (27.0-31.0); MEAN CORPUSCULAR HGB CONC 33.8 g/dl (33.0-37.0); MEAN PLATELET VOLUME 11.9 fl (9.6-12.3); RED BLOOD COUNT 4.69 10*6/uL (4.50-5.90); RED CELL DISTRI WIDTH 12.8 % (0-14.5); WHITE BLOOD COUNT 7.9 10*3/uL (4.8-10.8)
[2024-04-05 10:30] LABS: ALKALINE PHOSPHATASE 108 U/L (46-116); BUN 13 mg/dl (9-23); CHLORIDE 104 mmol/L (98-107); CHOLESTEROL 129 mg/dL (<200); CPK 61 U/L (34-171); LDL CHOLESTEROL 52 mg/dL (9-159); POTASSIUM 4.1 mmol/L (3.4-5.1); SGPT/ALT 17 U/L (5-49); TOTAL PROTEIN 6.8 gm/dL (6.0-8.0); TRIGLYCERIDES 122 mg/dl (<150)
[2024-04-05 10:35] LABS: VITAMIN D, 25-HYDROXY 20.6 ng/mL (30-100)
== END | disposition home or self-care (01) ==
LOC: LAB 09:17
PROVIDERS: ATTEND Family Medicine
DX: Z12.5 Encounter for screening for malignant neoplasm of prostate (principal); E78.00 Pure hypercholesterolemia, unspecified; E11.9 Type 2 diabetes mellitus without complications; I10 Essential (primary) hypertension; E55.9 Vitamin D deficiency, unspecified

== ENCOUNTER → 2025-04-01 | Outpatient (CLI) | payer MEDICARE ==
[2025-04-01 16:13] LABS: ALKALINE PHOSPHATASE 89 U/L (46-116); BUN 14 mg/dl (9-23); CHLORIDE 105 mmol/L (98-107); CHOLESTEROL 72 mg/dL (<200); CPK 70 U/L (34-171); LDL CHOLESTEROL 17 mg/dL (9-159); POTASSIUM 4.1 mmol/L (3.4-5.1); SGPT/ALT 22 U/L (5-49); TOTAL PROTEIN 7.1 gm/dL (6.0-8.0); TRIGLYCERIDES 53 mg/dl (<150)
[2025-04-01 16:15] LABS: VITAMIN D, 25-HYDROXY 31.6 ng/mL (30-100)
== END | disposition home or self-care (01) ==
LOC: LAB 15:04
PROVIDERS: ATTEND Family Medicine
DX: I10 Essential (primary) hypertension (principal); E11.9 Type 2 diabetes mellitus without complications; E55.9 Vitamin D deficiency, unspecified; E78.00 Pure hypercholesterolemia, unspecified; R53.83 Other fatigue; R35.0 Frequency of micturition

== ENCOUNTER → 2025-04-04 | Outpatient (CLI) | payer MEDICARE ==
[2025-04-04 13:44] LABS: HEMATOCRIT 45.5 % (42.0-52.0); MEAN CELL VOLUME 91.4 fl (80.0-94.0); MEAN CORPUSCULAR HGB 31.3 pg (27.0-31.0); MEAN CORPUSCULAR HGB CONC 34.3 g/dl (33.0-37.0); MEAN PLATELET VOLUME 11.5 fl (9.6-12.3); RED BLOOD COUNT 4.98 10*6/uL (4.50-5.90); RED CELL DISTRI WIDTH 12.9 % (0-14.5); WHITE BLOOD COUNT 8.7 10*3/uL (4.8-10.8)
== END | disposition home or self-care (01) ==
LOC: LAB 13:28
PROVIDERS: ATTEND Family Medicine
DX: E78.00 Pure hypercholesterolemia, unspecified (principal); E55.9 Vitamin D deficiency, unspecified; E11.9 Type 2 diabetes mellitus without complications; I10 Essential (primary) hypertension; R53.83 Other fatigue

== ENCOUNTER → 2025-04-23 | Outpatient (CLI) | payer MEDICARE | END | disposition home or self-care (01) | LOC: LAB 14:13 | PROVIDERS: ATTEND Family Medicine | DX: E83.52 Hypercalcemia (principal) ==